=== PATIENT | male | born 1970 | race Caucasian/White ===

== ENCOUNTER 2017-02-26 10:08 | Emergency (ER) | payer BC ==
[~2017-02-26] VITALS: Ht 172.7 cm; Wt 84.8 kg
[~2017-02-26 10:08] MED LIST: NAPROXEN250 MG PO
[2017-02-26] MEDS ORDERED: CEFAZOLIN SOD 1 GM/NS 50ML 50 ML IV STA (11:16)
[2017-02-26] MEDS ORDERED: ONDANSETRON HCL INJ 2 MG/ML VIAL IV STA (11:42)
[2017-02-26] MEDS ORDERED: HYDROMORPHONE 1MG/1ML INJ IV STA (11:42)
--- NOTE | 2017-02-26 11:48 | Diagnostic Imaging Report ---
Left foot - 3 views HISTORY: Pain. COMPARISON: None available. FINDINGS: Bones: No acute displaced fracture. Bridging osteophyte is present along the left lateral aspect of the midfoot. No expansile lytic or sclerotic lesion. Joints: The joint spaces are well-maintained. No dislocation. Soft tissues: The soft tissues appear unremarkable. IMPRESSION: No acute radiographic abnormality. Signed by: Dr. Presley Templeton M.D. on 02/26/2017 11:44 AM
[2017-02-26] MEDS ORDERED: VANCOMYCIN 1GM/NS 250 ML 250 ML IV STA (11:50)
[2017-02-26 11:51] LABS: BASOPHILS # (AUTO) 0.1 (0.0-0.1); BASOPHILS % 0.9 % (0.0-1.0); EOSINOPHILS # (AUTO) 0.3 (0.0-0.4); EOSINOPHILS % 3.2 % (0.0-6.0); HEMATOCRIT 46.3 % (38.2-49.6); HEMOGLOBIN 15.5 g/dL (14.0-18.0); LYMPHOCYTES # (AUTO) 2.2 (1.0-3.2); LYMPHOCYTES % 27.4 % (18.0-39.1); MEAN CORPUSCULAR HEMOGLOBIN 29.6 pg (28-32); MEAN CORPUSCULAR HGB CONC 33.5 g/dL (31-35); MEAN CORPUSCULAR VOLUME 88.4 fL (81-99); NEUTROPHILS # (AUTO) 4.6 (2.1-6.9); NEUTROPHILS % 56.1 % (38.7-80.0); PLATELET COUNT 319 x10e3/uL (140-360); RED BLOOD COUNT 5.24 x10e6/uL (4.3-5.7); RED CELL DISTRIBUTION WIDTH 12.3 % (11.7-14.4)
[2017-02-26 12:08] LABS: ANION GAP 13.1 mmol/L (8-16); BLOOD UREA NITROGEN 18 mg/dL (7-26); BUN/CREATININE RATIO 20 (6-25); CALCIUM 9.6 mg/dL (8.4-10.2); CARBON DIOXIDE 26 mmol/L (22-29); CHLORIDE 105 mmol/L (98-107); CREATININE, SERUM 0.89 mg/dL (0.72-1.25); EST GLOMERULAR FILTRATION RATE > 60 ML/MIN (60-); GLUCOSE 109 mg/dL (74-118); POTASSIUM 4.1 mmol/L (3.5-5.1); SODIUM 140 mmol/L (136-145)
[2017-02-26 13:31] VITALS: BP 112/72
[2017-02-26] MEDS ORDERED: HYDROMORPHONE 1MG/1ML INJ IV ONE (14:00)
[2017-02-26] MEDS ORDERED: HYDROMORPHONE HCL 2 MG TAB PO ONE (14:00)
== END 2017-02-26 13:48 | disposition home or self-care (01) ==
LOC: ER 10:08
DX: M79.672 Pain in left foot (principal); L03.116 Cellulitis of left lower limb
CPT/HCPCS: 36415; 73630; 80048; 85025; 87040; 99284; J1170; J2405; J3370

== ENCOUNTER 2018-02-13 12:10 | Emergency (ER) | payer BC ==
[~2018-02-13] VITALS: Ht 172.7 cm; Wt 86.2 kg
--- OUTSIDE RECORDS SUMMARY | 2018-02-13 12:13 | XMS REPORT ---
Author Author [facility] Address Unknown Phone Unavailable Care Team Providers Care Painter Drum Name Role Phone [place] ORTIZ Unavailable Unavailable Problems This patient has no known problems. Allergies, Adverse Reactions, Alerts This patient has no known allergies or adverse reactions. Medications This patient has no known medications. Results Test Description Test Time Test Comments Text Results Atomic Results Result Comments FOOT LEFT COMPLETE [place] [address] Patient Name: MEGGAN GABRIEL MR #: [id number] : 1970 Age/Sex: 46/M Req #: [id number] Adm Physician: Ordered by: HIWOT ORITZ MD Report #: [id number] Location: ER Room/Bed: Procedure: [id number] DX/FOOT LEFT COMPLETE Exam Date: 02/26/17 Exam Time: 1120 REPORT STATUS: Signed Left foot - 3 views HISTORY: Pain. COMPARISON: None available. FINDINGS: Bones: No acute displaced fracture. Bridging osteophyte is present along the left lateral aspect of the midfoot. No expansile lytic or sclerotic lesion. Joints: The joint spaces are well-maintained. No dislocation. Soft tissues: The soft tissues appear unremarkable. IMPRESSION: No acute radiographic abnormality. Signed by: Dr. Justen Joyce M.D. on 02/26/2017 11:44 AM Dictated By: JUSTEN JOYCE MD [id number] Transcribed By: LAM on 02/26/17 1144 COPY TO: HIWOT ORTIZ MD
[2018-02-13] MEDS ORDERED: HYDRALAZINE HCL 25 MG TAB PO STA (12:31)
[2018-02-13] MEDS ORDERED: HYDROCODONE/APAP 10MG-325MG TAB PO STA (12:31)
[2018-02-13] MEDS ORDERED: METOPROLOL TART25 MG PO (12:36)
[2018-02-13] MEDS ORDERED: ATORVASTATIN CA10 MG PO (12:36)
[2018-02-13] MEDS ORDERED: CLINDAMYCIN PHOS 600 MG/ 4 ML VIAL IM ONE (12:45)
[2018-02-13 14:45] VITALS: BP 143/92
== END 2018-02-13 14:43 | disposition home or self-care (01) ==
LOC: ER 13:09
DX: L03.114 Cellulitis of left upper limb (principal); L02.211 Cutaneous abscess of abdominal wall; T22.212A Burn of second degree of left forearm, initial encounter; X08.8XXA Exposure to other specified smoke, fire and flames, initial encounter; I10 Essential (primary) hypertension; E78.5 Hyperlipidemia, unspecified; N40.0 Benign prostatic hyperplasia without lower urinary tract symptoms; F17.210 Nicotine dependence, cigarettes, uncomplicated; Z88.0 Allergy status to penicillin
CPT/HCPCS: 99283

== ENCOUNTER 2018-05-28 13:32 | Inpatient (IN) | payer BC ==
[~2018-05-28] VITALS: Ht 172.7 cm; Wt 117.0 kg
[~2018-05-28 13:32] MED LIST changes: +ATORVASTATIN CA10 MG PO; +METOPROLOL TART25 MG PO
[2018-05-28 14:08] LABS: BILIRUBIN,URINE NEGATIVE (NEGATIVE); CLARITY,URINE HAZY (CLEAR); COLOR,URINE YELLOW (YELLOW); KETONES,URINE NEGATIVE (NEGATIVE); LEUKOCYTE ESTERASE ,URINE NEGATIVE (NEGATIVE); NITRITE,URINE NEGATIVE (NEGATIVE); PROTEIN,URINE DIPSTICK 1+ (NEGATIVE); URINE UROBILINOGEN 0.2 mg/dL (0.2 - 1)
[2018-05-28 14:17] LABS: BACTERIA,URINE RARE /HPF; EPITHELIAL CELLS,URINE RARE /LPF; RBC,URINE 0-5 /HPF (0-5); WBC,URINE (MAN) 0-5 /HPF (0-5)
[2018-05-28] MEDS ORDERED: ALBUTEROL SULF 0.083% NEB SOLN 3 ML NEB NEB STA (14:32)
[2018-05-28] MEDS ORDERED: IPRATROPIUM BROMIDE 0.02% 2.5 ML NEB NEB ONE (14:45)
[2018-05-28 14:47] LABS: BASOPHILS # (AUTO) 0.1 (0.0-0.1); BASOPHILS % 0.7 % (0.0-1.0); EOSINOPHILS # (AUTO) 0.2 (0.0-0.4); EOSINOPHILS % 3.2 % (0.0-6.0); HEMATOCRIT 43.2 % (38.2-49.6); HEMOGLOBIN 14.5 g/dL (14.0-18.0); LYMPHOCYTES # (AUTO) 1.7 (1.0-3.2); MEAN CORPUSCULAR HEMOGLOBIN 30.1 pg (28-32); MEAN CORPUSCULAR HGB CONC 33.6 g/dL (31-35); MEAN CORPUSCULAR VOLUME 89.8 fL (81-99); MONOCYTES # (AUTO) 0.8 (0.2-0.8); MONOCYTES % 10.6 % (4.4-11.3); NEUTROPHILS # (AUTO) 4.3 (2.1-6.9); NEUTROPHILS % 60.9 % (38.7-80.0); PLATELET COUNT 293 x10e3/uL (140-360); RED BLOOD COUNT 4.81 x10e6/uL (4.3-5.7); RED CELL DISTRIBUTION WIDTH 12.7 % (11.7-14.4)
[2018-05-28] MEDS ORDERED: DIOVAN80 MG PO (14:51)
[2018-05-28 14:52] LABS: INR 0.85; PROTHROMBIN TIME 12.1 seconds (11.9-14.5)
[2018-05-28 14:59] LABS: ALANINE AMINOTRANSFERASE 72 IU/L (0-55); ALBUMIN/GLOBULIN RATIO 1.2 (0.8-2.0); ALKALINE PHOSPHATASE 65 IU/L (40-150); ANION GAP 13.7 mmol/L (8-16); BLOOD UREA NITROGEN 13 mg/dL (7-26); BUN/CREATININE RATIO 15 (6-25); CALCIUM 8.9 mg/dL (8.4-10.2); CARBON DIOXIDE 26 mmol/L (22-29); CHLORIDE 102 mmol/L (98-107); CREATINE KINASE 156 IU/L (30-200); CREATININE, SERUM 0.84 mg/dL (0.72-1.25); EST GLOMERULAR FILTRATION RATE > 60 ML/MIN (60-); GLUCOSE 155 mg/dL (74-118); MAGNESIUM 2.3 MG/DL (1.3-2.1); POTASSIUM 3.7 mmol/L (3.5-5.1); SODIUM 138 mmol/L (136-145)
[2018-05-28 15:19] LABS: B-TYPE NATRIURETIC PEPTIDE2 47.8 pg/mL (0-100)
--- NOTE | 2018-05-28 15:25 | Diagnostic Imaging Report ---
EXAMINATION: CHEST 2 VIEWS INDICATION: Shortness of breath, CHF ^sob COMPARISON: None FINDINGS: PA and lateral views TUBES and LINES: None. LUNGS: There is flattening of the diaphragms. There is no evidence of pneumonia or pulmonary edema. Central pulmonary vasculature is prominent. PLEURA: No pleural effusion or pneumothorax. HEART AND MEDIASTINUM: The heart is top normal in size. The mediastinum is normal. BONES AND SOFT TISSUES: No focal osseous lesions. Soft tissues are unremarkable. UPPER ABDOMEN: No free air under the diaphragm. Clips in the upper abdomen may be the result of cholecystectomy. IMPRESSION: Prominent central pulmonary vasculature and top normal size of the heart. Pulmonary venous hypertension is suspected. Pulmonary hyperinflation suggestive of COPD. Signed by: Dr. Roque Enriquez MD on 05/28/2018 3:22 PM
[2018-05-28] MEDS ORDERED: METHYLPREDNISOLONE SOD SUCC 125 MG/2ML VIAL IV STA (16:01)
[2018-05-28] MEDS ORDERED: ONDANSETRON HCL INJ 2MG/ML 2ML 2 MG/ML VIAL IV PRN (16:15)
[2018-05-28] MEDS: HYDROCODONE/APAP 7.5MG-325MG 1 EA TAB PO PRN (16:58)
[2018-05-28] MEDS: LIDOCAINE HCL 2% JELLY 5 ML TUBE TOP PRN (16:59)
[2018-05-28] MEDS ORDERED: METOPROLOL TARTRATE 25 MG TAB PO SCH (17:00)
[2018-05-28 18:00] VITALS: BP 154/97
[2018-05-28 18:26] VITALS: BP 154/97
[2018-05-28] MEDS ORDERED: INFLUENZA VIRUS VAC SPLIT INJ 0.5 ML SYR IM ONE (18:45)
[2018-05-28] MEDS ORDERED: PNEUMOCOCCAL VACCINE POLYVALENT 23 MCG/0.5 ML VIAL IM ONE (18:45)
[2018-05-28] MEDS ORDERED: ACETAMINOPHEN 325 MG TAB PO PRN (19:15)
[2018-05-28] MEDS ORDERED: ACETAMINOPHEN/CODEINE 300MG - 30MG TAB PO PRN (19:15)
[2018-05-28] MEDS ORDERED: HYDRALAZINE HCL 20 MG/ML VIAL IV PRN (19:15)
--- NOTE | 2018-05-28 19:18 | NUR ---
Pt received resting in bed. Alert and oriented x4 with saline lock #20 in left AC. Oriented to staff and surroundings, encouraged to press call marx if help needed. Flu and pneumonia vaccines given. Call marx within reach. Emotional support given. Fall precautions maintained. Will monitor
--- NOTE | 2018-05-28 19:30 | NUR ---
Patient received in a high -dunbar position in bed. Family at bedside. Patient is AAO x 4. Patient had no complaints of pain. No signs of respiratory distress. Patient instructed to call for assistance when needed. Fall precautions implemented. Call light within reach.
[2018-05-28 20:39] VITALS: BP 152/100
[2018-05-29] VITALS (8 sets, daily range): BP systolic 105–157; BP diastolic 62–73
[2018-05-29] MEDS: ALBUTEROL/IPRATROPIUM 3 ML NEB NEB SCH ×4 (00:05→20:00)
[2018-05-29] MEDS: HYDROCODONE/APAP 7.5MG-325MG 1 EA TAB PO PRN ×2 (00:46→17:02)
[2018-05-29] MEDS: LIDOCAINE HCL 2% JELLY 5 ML TUBE TOP PRN (01:30)
[2018-05-29 05:05] LABS: BASOPHILS % 0.2 % (0.0-1.0); HEMATOCRIT 42.5 % (38.2-49.6); HEMOGLOBIN 14.2 g/dL (14.0-18.0); LYMPHOCYTES # (AUTO) 0.6 (1.0-3.2); MEAN CORPUSCULAR HEMOGLOBIN 30.1 pg (28-32); MEAN CORPUSCULAR HGB CONC 33.4 g/dL (31-35); MEAN CORPUSCULAR VOLUME 90.2 fL (81-99); MONOCYTES # (AUTO) 0.2 (0.2-0.8); MONOCYTES % 2.3 % (4.4-11.3); NEUTROPHILS % 89.7 % (38.7-80.0); PLATELET COUNT 288 x10e3/uL (140-360); RED BLOOD COUNT 4.71 x10e6/uL (4.3-5.7); RED CELL DISTRIBUTION WIDTH 12.7 % (11.7-14.4)
[2018-05-29 05:12] LABS: MAGNESIUM 2.3 MG/DL (1.3-2.1)
[2018-05-29 05:22] LABS: ALANINE AMINOTRANSFERASE 61 IU/L (0-55); ALBUMIN 3.7 g/dL (3.5-5.0); ALBUMIN/GLOBULIN RATIO 1.1 (0.8-2.0); ALKALINE PHOSPHATASE 59 IU/L (40-150); ANION GAP 15.7 mmol/L (8-16); BLOOD UREA NITROGEN 19 mg/dL (7-26); BUN/CREATININE RATIO 19 (6-25); CALCIUM 8.8 mg/dL (8.4-10.2); CARBON DIOXIDE 23 mmol/L (22-29); CHLORIDE 102 mmol/L (98-107); CHOL/HDL RATIO 5.7 (3.9-4.7); CHOLESTEROL 232 MD/DL (0-199); EST GLOMERULAR FILTRATION RATE > 60 ML/MIN (60-); GLUCOSE 218 mg/dL (74-118); HDL CHOLESTEROL 41 MG/DL (40-60); LDL CHOLESTEROL 153 MG/DL (60-130); POTASSIUM 4.7 mmol/L (3.5-5.1); SODIUM 136 mmol/L (136-145); TRIGLYCERIDES 188 MG/DL (0-149)
[2018-05-29 05:40] LABS: B-TYPE NATRIURETIC PEPTIDE2 63.6 pg/mL (0-100)
[2018-05-29] MEDS: FAMOTIDINE 20 MG/2 ML VIAL IV SCH ×3 (05:50→16:11)
--- NOTE | 2018-05-29 07:00 | NUR ---
SHIFT REPORT RECEIVED FROM NIGHT RN WHILE ROUNDING AT BEDSIDE. PT DENIES NEEDS AT THIS TIME.
[2018-05-29 07:05] LABS: FREE T4 (FREE THYROXINE) 0.99 ng/dL (0.9-1.8); THYROID STIMULATING HORMONE 0.991 uIU/mL (0.350-4.940)
[2018-05-29] MEDS: METOPROLOL TARTRATE 25 MG TAB PO SCH (08:27)
[2018-05-29] MEDS ORDERED: VALSARTAN 80 MG TAB PO SCH (09:00)
[2018-05-29] MEDS ORDERED: NICOTINE 21 MG/EA PATCH TOP SCH (09:00)
[2018-05-29] MEDS ORDERED: DEXTROSE 50% SYRINGE 50 ML IV PRN (09:00)
[2018-05-29] MEDS ORDERED: NICOTINE 21 MG/EA PATCH TOP PRN (09:15)
[2018-05-29] MEDS ORDERED: FUROSEMIDE INJ 10 MG/ML 2 ML VIAL IV NR (09:30)
[2018-05-29] MEDS: METHYLPREDNISOLONE SOD SUCC 125 MG/2ML VIAL IV SCH ×2 (09:37→20:55)
[2018-05-29] MEDS: CEFTRIAXONE SOD 1 GM/NS 50 ML 50 ML IV SCH (09:38)
[2018-05-29] MEDS: AMLODIPINE BESYLATE 10 MG TAB PO SCH (09:38)
[2018-05-29] MEDS: AZITHROMYCIN 500MG/NS 250 ML 250 ML IV SCH (09:40)
[2018-05-29 09:44] LABS: CREATINE KINASE 115 IU/L (30-200)
[2018-05-29] MEDS ORDERED: SODIUM CHLORIDE 0.9% 250ML 250 ML ONE (10:15)
[2018-05-29] MEDS: GUAIFENESIN 600MG/DEXTROMETHORPHAN 30MG TABSR PO SCH ×2 (10:53→20:55)
[2018-05-29] MEDS: INSULIN LISPRO 100 UNIT/1 ML 3ML VIAL SQ SCH ×3 (11:30→21:00)
--- NOTE | 2018-05-29 15:00 | NUR ---
PRINTED EDUCATION MATERIAL COVERING DIABETIC EDUCATION WELL CHOLESTEROL PROVIDED TO THE PT.
[2018-05-29 16:47] LABS: ABG PH 7.33 (7.31-7.41)
[2018-05-29 16:48] LABS: ABG HCO3 22 mmol/L (23-28); ABG PCO2 42 mmHg (41-51); ABG PO2 67 mmHg (80-105)
--- NOTE | 2018-05-29 17:16 | Diagnostic Imaging Report ---
Exam: Chest with contrast PE protocol TECHNIQUE: CT scan of the chest WITH intravenous contrast, using PE protocol. The chest was scanned utilizing a multidetector helical scanner from the lung apex through the level of the adrenal glands after the IV administration of 100 cc of Omnipaque 370. Thin section reconstructions were obtained with special concentration on the pulmonary arteries. Coronal and sagittal reformations were obtained. COMPARISON: Chest radiograph dated 05/28/2018 INDICATION: Dyspnea shortness of breath, history of smoking and hypertension 47-year-old male. DISCUSSION: Vessels: No pulmonary artery filling defect through the segmental pulmonary arteries. The ascending aorta and main pulmonary artery are of normal caliber. Lungs: The lungs are well inflated. Scarring/atelectasis in the left lung base. No filling defects are identified within the pulmonary arteries to the segmental level. Airways: The major airways are clear. Pleura: Small 1.9 cm fluid density collection along the right major fissure medially likely represents trapped pleural fluid. There is no evidence of significant pleural effusion or pneumothorax. Heart and mediastinum: The heart and the mediastinum are normal. No mediastinal or hilar lymphadenopathy. Scattered coronary artery calcifications. Abdomen: Diffusely decreased density of the hepatic parenchyma suggestive of hepatic steatosis. Bones and soft tissues: No acute bony abnormalities. IMPRESSION: #1. No pulmonary embolism. No acute thoracic abnormality. #2. Probable hepatic steatosis. Signed by: Phoenix Moya MD on 05/29/2018 5:13 PM
[2018-05-29] MEDS: ATORVASTATIN 20 MG TAB PO SCH (20:55)
[2018-05-29] MEDS ORDERED: FAMOTIDINE 20 MG/2 ML VIAL IV ONE (21:00)
--- NOTE | 2018-05-29 21:22 | Consultation ---
DATE OF CONSULTATION: Pulmonary Critical Care Consultation CHIEF COMPLAINT: Wheezing and cough. HISTORY OF PRESENT ILLNESS: The patient is a 47-year-old man. He has a vague history of COPD as well as a history of sleep apnea. He previously saw a house servant at the [facility]. He was tried on several different types of CPAP, but had difficulty tolerating it. The patient also reports some chronic dyspnea on exertion. He has had more dyspnea over the past several weeks. He has significant wheezing and coughing. He denies any chest pain or fevers. He does complain of an ulceration on the lateral aspect of his tongue that has been there for at least three weeks. PAST SURGICAL HISTORY: 1. Status post appendectomy. 2. Status post cholecystectomy. PAST MEDICAL HISTORY: 1. Obstructive sleep apnea. 2. COPD. 3. Hypertension. SOCIAL HISTORY: The patient is a former smoker. He is not an active drinker. ALLERGIES: THE PATIENT IS ALLERGIC TO PENICILLIN. FAMILY HISTORY: There is a history of cancer in the family. REVIEW OF SYSTEMS: The patient is afebrile. He has no headache. He is not having any neck pain. He does complain of an ulceration on the tongue. He has no chest pain. He is not having any abdominal pain. There is no nausea or vomiting. He does have wheezing. He does have some phlegm production. He has some leg swelling. PHYSICAL EXAMINATION: VITAL SIGNS: The patient is afebrile. The blood pressure is 157/73, and O2 saturation is 96% on 2 L. Pulse is 90 and the respiratory rate is 19. HEENT: Shows no facial swelling or erythema. The oropharynx is significant for a small ulceration on the left lateral tongue. LYMPHATIC: Shows no submandibular, cervical, or supraclavicular adenopathy. CARDIAC: Reveals a regular rate and rhythm with normal S1, S2. There are no murmurs or rubs. LUNGS: Auscultation of lungs reveals wheezes in both lung jason. ABDOMEN: Soft, nontender. There is no rebound or guarding. EXTREMITIES: Show no leg edema or calf tenderness. There is no cyanosis or clubbing. SKIN: Shows no rashes. NEUROLOGIC: Shows no focal abnormalities. LABORATORY DATA: The white blood cell count is 8.9 and the hemoglobin is 14.2. The platelet count is 288. The BUN to creatinine ratio is normal. The other electrolytes are within normal limits. RADIOGRAPHIC DATA: Chest x-ray shows normal size heart. There may be some hyperinflation suggestive of COPD. Venous duplex shows no DVT. Echocardiogram shows a left atrial enlargement as well as a normal left ventricular function with an EF of 50% to 55%. There was no measurable tricuspid jet. IMPRESSION: 1. Chronic obstructive pulmonary disease with acute exacerbation. 2. Obesity-hypoventilation syndrome. 3. Severe obstructive sleep apnea. PLAN: 1. The patient should have an ABG to determine his resting CO2. 2. Continue Solu-Medrol along with antibiotics and bronchodilators. 3. The patient has tried a nasal mask and a full face mask for his obstructive sleep apnea. Other options would include nasal pillows or possibly a dental prosthesis. Surgical treatments such as uvulopalatal pharyngoplasty or hyoid / genioglossus advancement would be the last option. 4. Medicine evaluation of chronic oral ulcer. This may require a biopsy. Shane Thomas MD Lucretia/OTTO /[id number] [place]
--- NOTE | 2018-05-29 21:30 | NUR ---
patient complaining of chest pain, vs taken hr 97 bp 130/65 RR 22 Spo2 95% on 2 L NC. patient states it is tightness. Called Bj WRAPPING CLERK, one time order of pepcid ordered.
--- NOTE | 2018-05-29 21:50 | NUR ---
Patient states minimal relief with pepcid. Bj called, order for ativan x 1, cardiac markers x 1, ekg.
[2018-05-29] MEDS ORDERED: LORAZEPAM 0.5 MG TAB PO ONE (22:00)
--- NOTE | 2018-05-29 22:00 | NUR ---
patient refused ekg
[2018-05-29 22:18] LABS: CREATINE KINASE 118 IU/L (30-200)
[2018-05-29] MEDS ORDERED: SODIUM CHLORIDE 0.9% 50ML 50 ML ONE (22:25)
[2018-05-29] MEDS ORDERED: IOPAMIDOL 370 MG/ML 200 ML INFUS..BTL INJ ONE (22:25)
[2018-05-30] VITALS (7 sets, daily range): BP systolic 117–142; BP diastolic 60–76
[2018-05-30] MEDS: ALBUTEROL/IPRATROPIUM 3 ML NEB NEB SCH ×2 (00:30→07:25)
[2018-05-30] MEDS: FAMOTIDINE 20 MG/2 ML VIAL IV SCH ×2 (04:09→15:51)
[2018-05-30 04:52] LABS: BASOPHILS % 0.1 % (0.0-1.0); HEMATOCRIT 40.5 % (38.2-49.6); HEMOGLOBIN 13.3 g/dL (14.0-18.0); LYMPHOCYTES # (AUTO) 0.6 (1.0-3.2); LYMPHOCYTES % 4.8 % (18.0-39.1); MEAN CORPUSCULAR HEMOGLOBIN 29.9 pg (28-32); MEAN CORPUSCULAR HGB CONC 32.8 g/dL (31-35); MONOCYTES # (AUTO) 0.6 (0.2-0.8); MONOCYTES % 4.4 % (4.4-11.3); NEUTROPHILS # (AUTO) 11.3 (2.1-6.9); NEUTROPHILS % 89.9 % (38.7-80.0); PLATELET COUNT 297 x10e3/uL (140-360); RED BLOOD COUNT 4.45 x10e6/uL (4.3-5.7); RED CELL DISTRIBUTION WIDTH 13.1 % (11.7-14.4)
[2018-05-30 05:14] LABS: ALBUMIN 3.7 g/dL (3.5-5.0); ANION GAP 14.3 mmol/L (8-16); BILIRUBIN,DIRECT 0.1 mg/dL (0.0-0.5); BLOOD UREA NITROGEN 23 mg/dL (7-26); BUN/CREATININE RATIO 24 (6-25); CALCIUM 9.4 mg/dL (8.4-10.2); CARBON DIOXIDE 24 mmol/L (22-29); CHLORIDE 103 mmol/L (98-107); CREATININE, SERUM 0.95 mg/dL (0.72-1.25); EST GLOMERULAR FILTRATION RATE > 60 ML/MIN (60-); GLUCOSE 246 mg/dL (74-118); MAGNESIUM 2.6 MG/DL (1.3-2.1); SODIUM 136 mmol/L (136-145)
[2018-05-30 05:16] LABS: POTASSIUM 5.3 mmol/L (3.5-5.1)
--- NOTE | 2018-05-30 07:00 | NUR ---
SHIFT REPORT RECEIVED FROM NIGHT RN WHILE ROUNDING AT BEDSIDE. PT DENIES NEEDS AT THIS TIME.
[2018-05-30] MEDS: INSULIN LISPRO 100 UNIT/1 ML 3ML VIAL SQ SCH ×4 (07:51→21:00)
[2018-05-30] MEDS: GUAIFENESIN 600MG/DEXTROMETHORPHAN 30MG TABSR PO SCH ×2 (08:08→21:34)
[2018-05-30] MEDS: METHYLPREDNISOLONE SOD SUCC 125 MG/2ML VIAL IV SCH (08:08)
[2018-05-30] MEDS: METOPROLOL TARTRATE 25 MG TAB PO SCH (08:08)
[2018-05-30] MEDS: AMLODIPINE BESYLATE 10 MG TAB PO SCH (08:09)
[2018-05-30] MEDS ORDERED: LORAZEPAM INJ 2 MG/ML VIAL IV PRN (08:15)
[2018-05-30] MEDS: AZITHROMYCIN 500MG/NS 250 ML 250 ML IV SCH (08:23)
[2018-05-30] MEDS ORDERED: FUROSEMIDE INJ 10 MG/ML 4 ML VIAL IV NR (08:45)
[2018-05-30] MEDS: CEFTRIAXONE SOD 1 GM/NS 50 ML 50 ML IV SCH (09:56)
[2018-05-30] MEDS ORDERED: ALBUTEROL SULF 0.083% NEB SOLN 3 ML NEB NEB PRN (12:30)
--- NOTE | 2018-05-30 15:52 | Progress Note ---
DATE: Pulmonary Critical Care Progress Note SUBJECTIVE: The patient feels better today. He has less congestion and less cough. He still complains of an ulceration on his tongue. PHYSICAL EXAMINATION: VITAL SIGNS: Blood pressure is 129/73, saturation is 94% on 2 L. The pulse is 88. HEENT: Shows no facial swelling or erythema. There is an ulcer on the lateral aspect of the tongue. LYMPHATIC: Shows no submandibular, cervical, or supraclavicular adenopathy. CARDIAC: Reveals regular rate and rhythm with a normal S1 and S2. There are no murmurs or rubs. LUNGS: Auscultation of lungs reveals a few rhonchorous breath sounds bilaterally. There is no wheezing. ABDOMEN: Soft and nontender. There is no rebound or guarding. EXTREMITIES: Show no leg edema or calf tenderness. RADIOGRAPHIC DATA: CT scan shows no active disease. IMPRESSION: 1. Chronic obstructive pulmonary disease with acute exacerbation. 2. Severe obstructive sleep apnea. PLAN: 1. Taper steroids. 2. Continue antibiotics. 3. The patient should begin Spiriva on a daily basis as an outpatient along with nebulizer as needed for rescue. 4. The patient will need an oral medicine or ENT evaluation for the oral ulcer. This ulcer will most probably require biopsy. 5. The patient will need outpatient evaluation for his obstructive sleep apnea. He will most probably require a nasal mask or nasal pillow mask to treat his obstructive sleep apnea. Other options would include a dental prosthesis. 6. The patient should begin weight loss and exercise program. Weight loss may help his obstructive sleep apnea. MD PALMIRA Garland/OTTO /[id number]
[2018-05-30] MEDS: METHYLPREDNISOLONE SOD SUCC 40 MG/ML VIAL 1ML IV SCH (21:34)
[2018-05-30] MEDS: ATORVASTATIN 20 MG TAB PO SCH (21:34)
[2018-05-31] VITALS (7 sets, daily range): BP systolic 111–139; BP diastolic 58–85
--- NOTE | 2018-05-31 02:40 | Consultation ---
DATE OF CONSULTATION: 05/30/2018 Hospital Consultation. HISTORY OF PRESENT ILLNESS: I was kindly asked to see this [id number]-man, who presents with a 3-week history of lesion on his left lateral tongue. Prior to this episode he has had multiple ulcers in his mouth, which have resolved spontaneously. He presented to the hospital with difficulty breathing and dry cough. PAST MEDICAL HISTORY: Pertinent for obstructive sleep apnea, COPD, hypertension, and tobacco use. PHYSICAL EXAMINATION: The tympanic membranes and external auditory canal are normal. Nasal examination shows a mild S-shaped nasal septal deviation with normal appearing nasal mucosa. Oral cavity examination shows an enlarged tongue. He had elongated uvula with redundant folds of hypopharyngeal mucosa. There is 2 mm x 4 mm lesion on the left lateral tongue. Margins are not hit and findings are consistent with viral aphthous ulcer. There is no palpable cervical adenopathy. ASSESSMENT: 1. Aphthous stomatitis. 2. Obstructive sleep apnea. 3. History of tobacco use. PLAN: 1. Kenalog in [place] to the left lateral tongue lesion t.i.d. 2. Consideration of biopsy as the tongue lesion based on response to medical therapy. Thank you very much. MD GENE Goodrich/MODL /[id number]
[2018-05-31] MEDS: FAMOTIDINE 20 MG/2 ML VIAL IV SCH ×2 (04:15→15:58)
[2018-05-31] MEDS: TRIAMCINOLONE 0.1% DENTAL PASTE 0.18 OZ TUBE DT SCH ×3 (04:46→17:42)
[2018-05-31 05:15] LABS: BASOPHILS % 0.1 % (0.0-1.0); HEMATOCRIT 42.5 % (38.2-49.6); HEMOGLOBIN 13.8 g/dL (14.0-18.0); LYMPHOCYTES # (AUTO) 0.9 (1.0-3.2); LYMPHOCYTES % 7.5 % (18.0-39.1); MEAN CORPUSCULAR HEMOGLOBIN 29.9 pg (28-32); MEAN CORPUSCULAR HGB CONC 32.5 g/dL (31-35); MONOCYTES # (AUTO) 0.6 (0.2-0.8); MONOCYTES % 5.4 % (4.4-11.3); NEUTROPHILS % 86.6 % (38.7-80.0); PLATELET COUNT 297 x10e3/uL (140-360); RED BLOOD COUNT 4.62 x10e6/uL (4.3-5.7)
[2018-05-31 05:50] LABS: ANION GAP 13.7 mmol/L (8-16); BLOOD UREA NITROGEN 26 mg/dL (7-26); BUN/CREATININE RATIO 30 (6-25); CALCIUM 9.1 mg/dL (8.4-10.2); CARBON DIOXIDE 27 mmol/L (22-29); CHLORIDE 98 mmol/L (98-107); CREATININE, SERUM 0.86 mg/dL (0.72-1.25); EST GLOMERULAR FILTRATION RATE > 60 ML/MIN (60-); GLUCOSE 162 mg/dL (74-118); MAGNESIUM 2.5 MG/DL (1.3-2.1); POTASSIUM 4.7 mmol/L (3.5-5.1); SODIUM 134 mmol/L (136-145)
--- NOTE | 2018-05-31 07:00 | NUR ---
Received patient mid fowlers position, side rails upx2, call light within reach. AAOX3 to person, place, time. Respirations even and unlabored. Denies pain. Instructed patient to use call light for assistance. Will continue to monitor.
[2018-05-31] MEDS: TIOTROPIUM 18 MCG INH POWDER INH SCH (07:16)
[2018-05-31] MEDS ORDERED: SODIUM CHLORIDE 0.9% 250ML 250 ML ONE (07:21)
[2018-05-31] MEDS: METHYLPREDNISOLONE SOD SUCC 40 MG/ML VIAL 1ML IV SCH ×2 (08:21→21:50)
[2018-05-31] MEDS: GUAIFENESIN 600MG/DEXTROMETHORPHAN 30MG TABSR PO SCH ×2 (08:21→21:50)
[2018-05-31] MEDS: METOPROLOL TARTRATE 25 MG TAB PO SCH (08:21)
[2018-05-31] MEDS: INSULIN LISPRO 100 UNIT/1 ML 3ML VIAL SQ SCH ×4 (08:22→21:00)
[2018-05-31] MEDS: CEFTRIAXONE SOD 1 GM/NS 50 ML 50 ML IV SCH (08:22)
[2018-05-31] MEDS: AMLODIPINE BESYLATE 10 MG TAB PO SCH (08:22)
[2018-05-31] MEDS: AZITHROMYCIN 500MG/NS 250 ML 250 ML IV SCH (09:34)
[2018-05-31] MEDS ORDERED: FUROSEMIDE INJ 10 MG/ML 4 ML VIAL IV ONE (10:00)
[2018-05-31] MEDS: ALBUTEROL/IPRATROPIUM 3 ML NEB NEB SCH ×4 (10:56→23:20)
--- NOTE | 2018-05-31 13:26 | NUR ---
CASE MANAGEMENT INITIAL ASSESSMENT Market Research Intern to bedside to discuss plan of care with patient/family. CM/SW role and care transitions discussed. Anticipated discharge plan discussed along with duration of care. CM/SW discussed patients right to make decisions in care. CM work hours given. Patient lives: PATIENT LIVES IN [place], [place] WITH SON IN SINGLE STORY HOME Admit/Transfer: ED Hospital/ER visits since last admit:NONE POA/Emergency contact: SONJoanna GABRIEL [phone] Current/Previous Home Health: NONE PCP/Follow-up Care: DR. WOODY JOYNER Current/Previous DME: NONE Medications (referring to index hospitalization or the first time you were in the hospital) a. Were changes made in your medications when you were in the hospital on [date of index hospitalization]? N/A Note: If no or not sure, please skip to question d b. Did you understand the changes? N/A c. Were you able to obtain your new medications right away? N/A d. Were you able to take your medications like the doctor wanted you to? N/A e. Did the hospital give you an accurate, easy to understand list of medications when you left? N/A Scale of 1-10 how comfortable does patient feel with disease management in outpatient setting: Other Services: NO HOME O2 Employment Status: EMPLOYED- [employer] Areas of Concerns: OXYGENATION Referral Needs: POSSIBLE HOME O2 Education Needs: FLUID RESTRICTIONS IMM/MORA given and signed (if applicable): IMM Goal for discharge: DISCHARGE HOME WITH HOME O2 CM left business card at the bedside with contact information. Name and number was also written on the patients whiteboard. Patient verbalized understanding of discussion. CM will follow-up with ongoing discharge and transition of care needs.
--- NOTE | 2018-05-31 14:32 | NUR ---
SANTINO SPOKE TO DR. GONZALEZ REGARDING SPLIT NIGHT SLEEP STUDY OUTPATIENT. INFORMED THAT CM DEPARTMENT DOES NOT SET UP OUTPATIENT SLEEP STUDY. DR. GONZALEZ STATES HE WILL HAVE HIS OFFICE SET IT UP. SANTINO OFFERED TO SEND INFORMATION TO HIS OFFICE; STATES HE WILL TAKE CARE OF IT. WITH NO FURTHER ORDERS OR QUESTIONS FOR SANTINO.
--- NOTE | 2018-05-31 15:24 | Progress Note ---
DATE: 05/31/2018 Pulmonary Critical Care Progress Note SUBJECTIVE: The patient feels better. He has less congestion and less cough. He is not complaining of any wheezing. He saw ENT in consultation. They recommended Kenalog to the aphthous ulcer. If the aphthous ulcer does not improve with Kenalog, then a biopsy may be required. PHYSICAL EXAMINATION: VITAL SIGNS: The patient is afebrile. The blood pressure is 111/58 and the saturation is 96%. The pulse is 67. The respiratory rate is 18. HEENT: Shows no facial swelling or erythema. The nasal mucosa is normal. The oropharynx is normal. LYMPHATIC: Shows no submandibular, cervical, or supraclavicular adenopathy. CARDIAC: Reveals a regular rate and rhythm with a normal S1 and S2. There are no murmurs or rubs heard. LUNGS: Auscultation of the lungs reveals clear breath sounds bilaterally. There is no wheezing. ABDOMEN: Soft and nontender. There is no rebound or guarding. EXTREMITIES: Show no leg edema or calf tenderness. There is no cyanosis or clubbing. IMPRESSION: 1. Chronic obstructive pulmonary disease with acute exacerbation. 2. Severe obstructive sleep apnea. PLAN: 1. Discharge home tomorrow. 2. Prednisone taper and oral antibiotics. 3. Spiriva daily with the rescue inhaler as needed. 4. Smoking cessation. 5. Outpatient sleep study with a split night protocol. Shane Thomas MD [facility]/MKL /[id number]
--- NOTE | 2018-05-31 18:31 | NUR ---
Resting in bed. No s/s of acute distress noted. Report to be given to oncoming nurse.
--- NOTE | 2018-05-31 19:28 | NUR ---
Patient received sitting up in bed. AAO x 4. Patient had no complaints of pain. No signs of respiratory distress. Patient instructed to call for assistance when needed. Call light within reach.
[2018-05-31] MEDS: ATORVASTATIN 20 MG TAB PO SCH (21:48)
[2018-06-01] VITALS: BP 148/88
[2018-06-01 03:02] VITALS: BP 148/88
[2018-06-01] MEDS: ALBUTEROL/IPRATROPIUM 3 ML NEB NEB SCH ×3 (03:48→11:00)
[2018-06-01 04:00] VITALS: BP 155/79
[2018-06-01] MEDS: FAMOTIDINE 20 MG/2 ML VIAL IV SCH (04:15)
[2018-06-01 05:04] LABS: BASOPHILS % 0.1 % (0.0-1.0); HEMATOCRIT 43.1 % (38.2-49.6); HEMOGLOBIN 14.2 g/dL (14.0-18.0); LYMPHOCYTES # (AUTO) 0.8 (1.0-3.2); LYMPHOCYTES % 9.3 % (18.0-39.1); MEAN CORPUSCULAR HEMOGLOBIN 29.6 pg (28-32); MEAN CORPUSCULAR HGB CONC 32.9 g/dL (31-35); MEAN CORPUSCULAR VOLUME 89.8 fL (81-99); MONOCYTES # (AUTO) 0.4 (0.2-0.8); MONOCYTES % 4.2 % (4.4-11.3); NEUTROPHILS # (AUTO) 7.1 (2.1-6.9); NEUTROPHILS % 85.7 % (38.7-80.0); PLATELET COUNT 282 x10e3/uL (140-360); RED CELL DISTRIBUTION WIDTH 12.6 % (11.7-14.4)
[2018-06-01 05:25] LABS: ANION GAP 17.2 mmol/L (8-16); BLOOD UREA NITROGEN 23 mg/dL (7-26); BUN/CREATININE RATIO 26 (6-25); CALCIUM 9.1 mg/dL (8.4-10.2); CARBON DIOXIDE 24 mmol/L (22-29); CHLORIDE 96 mmol/L (98-107); CREATININE, SERUM 0.89 mg/dL (0.72-1.25); EST GLOMERULAR FILTRATION RATE > 60 ML/MIN (60-); GLUCOSE 202 mg/dL (74-118); MAGNESIUM 2.4 MG/DL (1.3-2.1); POTASSIUM 4.2 mmol/L (3.5-5.1); SODIUM 133 mmol/L (136-145)
[2018-06-01] MEDS: TRIAMCINOLONE 0.1% DENTAL PASTE 0.18 OZ TUBE DT SCH ×2 (06:00→12:08)
[2018-06-01] MEDS: INSULIN LISPRO 100 UNIT/1 ML 3ML VIAL SQ SCH ×2 (07:30→12:09)
[2018-06-01] MEDS: TIOTROPIUM 18 MCG INH POWDER INH SCH (07:37)
[2018-06-01] MEDS: CEFTRIAXONE SOD 1 GM/NS 50 ML 50 ML IV SCH (08:00)
[2018-06-01 08:15] VITALS: BP 142/84
[2018-06-01] MEDS: METHYLPREDNISOLONE SOD SUCC 40 MG/ML VIAL 1ML IV SCH (08:19)
[2018-06-01] MEDS: METOPROLOL TARTRATE 25 MG TAB PO SCH (08:19)
[2018-06-01] MEDS: AZITHROMYCIN 500MG/NS 250 ML 250 ML IV SCH (08:20)
[2018-06-01] MEDS: GUAIFENESIN 600MG/DEXTROMETHORPHAN 30MG TABSR PO SCH (08:20)
[2018-06-01] MEDS: AMLODIPINE BESYLATE 10 MG TAB PO SCH (08:20)
[2018-06-01 08:25] VITALS: BP 142/84
[2018-06-01] MEDS ORDERED: METFORMIN HCL500 MG PO (10:39)
[2018-06-01] MEDS ORDERED: NORVASC10 MG PO (10:39)
[2018-06-01] MEDS ORDERED: LIPITOR20 MG PO (10:39)
[2018-06-01] MEDS ORDERED: MUCINEX DM ER1 EACH PO (10:39)
[2018-06-01] MEDS ORDERED: PREDNISONE20 MG PO (10:42)
[2018-06-01] MEDS ORDERED: SPIRIVA RESPIMAT IH (10:42)
[2018-06-01] MEDS ORDERED: AZITHROMYCIN250 MG PO (10:42)
[2018-06-01] MEDS ORDERED: PROAIR HFA INH8.5 GM INH (10:42)
[2018-06-01] MEDS ORDERED: TRIAMCINOLONE AC5 GM DT (10:44)
[2018-06-01] MEDS ORDERED: AZITHROMYCIN 250 MG TAB PO NR (11:00)
[2018-06-01] MEDS ORDERED: AZITHROMYCIN 250 MG TAB PO STA (11:54)
[2018-06-01 12:00] VITALS: BP 137/86
--- NOTE | 2018-06-01 12:00 | NUR ---
Kisha Wei Tar Pot Worker aware of order for outpatient sleep study. Per Kisha Wei "enterprise applications manager does not schedule outpatient sleep study. is aware"
--- NOTE | 2018-06-01 12:40 | NUR ---
Left AC IV discontinued. No signs of infiltration noted. 2x2 gauze and tape placed. Taken via wheelchair, by PCT, to personal car. AAOX4 to time, person, place, situation. Respirations even and unlabored. Discharge instructions, rx, and all personal belongings taken with patient.
--- NOTE | 2018-06-01 19:38 | Discharge Summary ---
ADMISSION DIAGNOSES: Acute exacerbation of chronic obstructive pulmonary disease, hypertension, hyperlipidemia, obesity, type 2 diabetes, tongue ulcer, tobacco use, bilateral lower extremity edema, and obstructive sleep apnea. DISCHARGE DIAGNOSES: Acute exacerbation of chronic obstructive pulmonary disease, hypertension, hyperlipidemia, obesity, type 2 diabetes, tongue ulcer, tobacco use, bilateral lower extremity edema, obstructive sleep apnea, rule out deep vein thrombosis, aphthous stomatitis, and aphthous ulcer. HISTORY: The patient has a history of hypertension, obstructive sleep apnea, tobacco use, and COPD. SURGICAL HISTORY: Cholecystectomy and appendectomy. FAMILY HISTORY: The patient's mom had throat cancer. SOCIAL HISTORY: The patient admits to smoking 1-2 packs a day of cigarettes for about 37 years. HOSPITAL COURSE: A 47-year-old male complains of orthopnea and dry cough that has worsened over the last few months. Symptoms are worse with lying flat and bending over. Symptoms improved with sitting up. He denies fever or sputum. He also complains of a hole in his tongue that began about 3 weeks ago. The lesion is tender to touch. He also complains of intermittent bilateral lower extremity edema. He says he has been told he has COPD and obstructive sleep apnea, but is unable to tolerate the CPAP. On admission, the patient had a chest x-ray that showed prominent central pulmonary vasculature and top-normal size of heart. Pulmonary venous hypertension is suspected. Pulmonary hyperinflation is suggestive of COPD. CT of the chest showed no PE, no acute thoracic abnormality. Blood cultures were negative. A1c was 7.1. Bilateral lower extremity venous Doppler was negative. Echo showed an EF of 50%-55%. Pulmonary was consulted. The patient was started on Zithromax, Rocephin, Solu-Medrol, aggressive neb treatments, and oxygen p.r.n. He was also started on sliding scale insulin, which was changed to metformin at the time of discharge. ENT was consulted for the tongue ulcer, who ordered Kenalog t.i.d., and said a biopsy may be needed based on the response to the medical therapy. He considered the ulcer to be a viral aphthous ulcer. After a couple days of IV antibiotics, the patient is feeling much better. He will discharge home with new prescriptions for Lipitor, metformin, prednisone taper dose, Spiriva, Zithromax, Norvasc, albuterol HFA, and Kenalog. He will follow up with primary care in 1-2 weeks and Pulmonology in 1-2 weeks. He will need an outpatient sleep study with a split night protocol per Pulmonology request. The patient will discharge home. Vital signs stable, patient afebrile. He does not qualify for oxygen at this time. The patient understands discharge instructions and agrees to plan. Dictated by Daisha Barth NP Wallace Liu MD ANJEL/MODL /[id number]
== END 2018-06-01 12:40 | disposition home or self-care (01) | DRG 191 ==
LOC: ER 13:32 → ERHOLD 16:07 → MED/SURG2 18:01 → OBSVTOIN 05-30 08:23
PROVIDERS: ADMIT Internal Medicine; ATTEND Internal Medicine
DX: J44.1 Chronic obstructive pulmonary disease with (acute) exacerbation (principal); E66.2 Morbid (severe) obesity with alveolar hypoventilation; E78.5 Hyperlipidemia, unspecified; I10 Essential (primary) hypertension; E11.9 Type 2 diabetes mellitus without complications; K14.0 Glossitis; G47.33 Obstructive sleep apnea (adult) (pediatric); K12.0 Recurrent oral aphthae; F17.210 Nicotine dependence, cigarettes, uncomplicated; I27.20 Pulmonary hypertension, unspecified; Z88.0 Allergy status to penicillin; Z68.39 Body mass index [BMI] 39.0-39.9, adult; E83.41 Hypermagnesemia
CPT/HCPCS: 36415; 36600; 71046; 71260; 80048; 80053; 80061; 80076; 81001; 82103; 82550; 82553; 82805; 82948; 83036; 83605; 83735; 83880; 84439; 84443; 84484; 85025; 85610; 85730; 87040; 90732; 93005; 93306; 93970; 94640; 96372; 99284; G0378; J0456; J0696; J1940; J2001; J2920; J2930; J7050; Q9967

== ENCOUNTER 2019-01-29 02:25 | Emergency (ER) | payer BC ==
[~2019-01-29] VITALS: Ht 172.7 cm; Wt 117.0 kg
[~2019-01-29 02:25] MED LIST changes: +AZITHROMYCIN250 MG PO; +DIOVAN80 MG PO; +LIPITOR20 MG PO; +METFORMIN HCL500 MG PO; +MUCINEX DM ER1 EACH PO; +NORVASC10 MG PO; +PREDNISONE20 MG PO; +PROAIR HFA INH8.5 GM INH; +SPIRIVA RESPIMAT IH; +TRIAMCINOLONE AC5 GM DT
--- NOTE | 2019-01-29 03:41 | Diagnostic Imaging Report ---
EXAMINATION: CHEST 2 VIEWS INDICATION: ^sob, cough ^[id number] ^0308 ^Y COMPARISON: Chest x-ray and CT chest 05/29/2018 FINDINGS: PA and lateral views TUBES and LINES: None. LUNGS: Mild stable hyperinflation. Diffuse pulmonary vascular congestion. No confluent infiltrates PLEURA: No pleural effusion or pneumothorax. HEART AND MEDIASTINUM: The heart is top normal in size to mildly enlarged. BONES AND SOFT TISSUES: No focal osseous lesions. Soft tissues are unremarkable. UPPER ABDOMEN: No free air under the diaphragm. IMPRESSION: Pulmonary vascular congestion. Chronic pulmonary hyperinflation suggestive of small airways disease. Signed by: Dr. Roque Enriquez MD on 01/29/2019 3:37 AM
== END 2019-01-29 04:10 | disposition home or self-care (01) ==
LOC: ER 02:25
DX: R05 Cough (principal); J20.9 Acute bronchitis, unspecified; I10 Essential (primary) hypertension; E78.5 Hyperlipidemia, unspecified; J44.9 Chronic obstructive pulmonary disease, unspecified; I50.9 Heart failure, unspecified
CPT/HCPCS: 71046; 87400; 99283

== ENCOUNTER 2019-04-28 00:54 | Inpatient (IN) | payer BC ==
[2019-04-28] VITALS (14 sets, daily range): BP systolic 120–139; BP diastolic 61–88
[~2019-04-28] VITALS: Ht 172.7 cm; Wt 112.0 kg
[2019-04-28 02:20] LABS: ALANINE AMINOTRANSFERASE 32 IU/L (0-55); ALBUMIN 3.9 g/dL (3.5-5.0); ALBUMIN/GLOBULIN RATIO 1.3 (0.8-2.0); ALKALINE PHOSPHATASE 54 IU/L (40-150); BLOOD UREA NITROGEN 13 mg/dL (7-26); BUN/CREATININE RATIO 16 (6-25); CALCIUM 9.6 mg/dL (8.4-10.2); CARBON DIOXIDE 24 mmol/L (22-29); CHLORIDE 101 mmol/L (98-107); CREATINE KINASE 97 IU/L (30-200); CREATININE, SERUM 0.81 mg/dL (0.72-1.25); EST GLOMERULAR FILTRATION RATE > 60 ML/MIN (60-); GLUCOSE 194 mg/dL (74-118); SODIUM 139 mmol/L (136-145)
[2019-04-28 02:23] LABS: BASOPHILS # (AUTO) 0.1 (0.0-0.1); BASOPHILS % 0.6 % (0.0-1.0); EOSINOPHILS # (AUTO) 0.3 (0.0-0.4); EOSINOPHILS % 3.4 % (0.0-6.0); HEMATOCRIT 44.1 % (38.2-49.6); HEMOGLOBIN 14.6 g/dL (14.0-18.0); LYMPHOCYTES # (AUTO) 1.9 (1.0-3.2); LYMPHOCYTES % 23.5 % (18.0-39.1); MEAN CORPUSCULAR HEMOGLOBIN 29.8 pg (28-32); MEAN CORPUSCULAR HGB CONC 33.1 g/dL (31-35); MONOCYTES # (AUTO) 0.9 (0.2-0.8); NEUTROPHILS # (AUTO) 4.8 (2.1-6.9); PLATELET COUNT 291 x10e3/uL (140-360); RED CELL DISTRIBUTION WIDTH 13.3 % (11.7-14.4)
--- NOTE | 2019-04-28 03:31 | Diagnostic Imaging Report ---
EXAMINATION: CHEST 2 VIEWS INDICATION: Chest pain COMPARISON: Chest CT 05/29/2018, chest x-ray 05/28/2018 FINDINGS: TUBES and LINES: None. LUNGS: Normal lung volumes. Prominent central pulmonary vasculature. Mild peripheral bronchial cuffing. Slight prominence of central pulmonary interstitial lung markings. PLEURA: No pleural effusion or pneumothorax. HEART AND MEDIASTINUM: Cardiac size is mildly enlarged. BONES AND SOFT TISSUES: No acute osseous lesion. Soft tissues are unremarkable. UPPER ABDOMEN: No free air under the diaphragm. IMPRESSION: Mild cardiomegaly and pulmonary vascular congestion. Mild pulmonary interstitial edema is suspected. Signed by: Colton Barrera DO on 04/28/2019 3:28 AM
[2019-04-28] MEDS ORDERED: NITROGLYCERIN 0.4 MG SUBL SL PRN (04:00)
[2019-04-28] MEDS ORDERED: SODIUM CHLORIDE FLUSH 10 ML SYR INJ PRN (04:00)
[2019-04-28] MEDS ORDERED: FAMOTIDINE 20 MG/2 ML VIAL IV SCH (04:00)
[2019-04-28] MEDS ORDERED: ONDANSETRON HCL INJ 2MG/ML 2ML 2 MG/ML VIAL IV PRN ×2 (04:00→08:15)
[2019-04-28] MEDS ORDERED: ONDANSETRON HCL INJ 2MG/ML 2ML 2 MG/ML VIAL IV STA (05:58)
[2019-04-28] MEDS: MORPHINE SULFATE 2 MG/ML SYR 1ML IV PRN ×2 (06:09→10:30)
--- NOTE | 2019-04-28 08:04 | NUR ---
H&P cc: chest pain HPI: 48yoM, PCP none, developed cp- precordial, persist.. some SOB. hx cigs. quit 1 yr ago. PMH: aphthous stomatitis, COPD, cig use, DM2, Peripheral edema, VERN, HTN, HLD PSHx: cholecystectomy, appendectomy Allergies; see emr FH/SH: meds; see MAR ROS: v/s revd PE tired appearing anicteric ns1s2 mod bs soft nt nd no e/t skin dry flat affect labs/meds revd A/P: Atypical CP COPD- O2; nebs DM2- hab1c/lipids Hx Cig HTN- home meds HLD- home meds Obesity- hab1c/lipids BMI 39.2 Prop: lovenox; pepcid dispo: needs cardio eval; needs echo and will need stress test at some point.
[2019-04-28 08:08] LABS: CREATINE KINASE MB 17.2 ng/mL (0-5.0)
[2019-04-28] MEDS ORDERED: SENNOSIDES 8.6 MG TAB PO PRN (08:15)
[2019-04-28] MEDS ORDERED: ZOLPIDEM TARTRATE 5 MG TAB PO PRN (08:15)
[2019-04-28 08:29] LABS: CHOL/HDL RATIO 5.6 (3.9-4.7)
[2019-04-28] MEDS ORDERED: AMLODIPINE BESYLATE 10 MG TAB PO SCH (09:00)
[2019-04-28] MEDS ORDERED: METOPROLOL TARTRATE 25 MG TAB PO SCH (09:00)
[2019-04-28] MEDS: ASPIRIN 81 MG ENTERIC COATED PO SCH (10:30)
--- NOTE | 2019-04-28 11:48 | NUR ---
Troponin noted to be 0.333. Attempted to call Dr. Magana. Spoke with drilling contractor service. Message was promised to be sent and I was told to expect a phone call back within an hour.
--- NOTE | 2019-04-28 11:53 | NUR ---
Received return call from Dr. Magana. Informed him of patient status and increased troponin. He stated that he would be in to see the patient shortly and that it was ok to transfer patient to Med Surg where he has been assigned a bed. Will pass this information in report to MED SURG 1
--- NOTE | 2019-04-28 12:30 | NUR ---
RECEIVED TO RM, AAOX3 NO DISTRESS NOTED, UPDATED ON POC VOICED UNDERSTANDING, L AC 2OG NO SS OF INFILTRATION NOTED, NO OTHER CO VOICED CALL LIGHT IN REACH WILL CONTINUE TO MONITOR
[2019-04-28 12:41] LABS: INR 0.89; PROTHROMBIN TIME 12.6 seconds (11.9-14.5)
[2019-04-28 12:42] LABS: PARTIAL THROMBOPLASTIN TIME 24.9 seconds (23.8-35.5)
[2019-04-28] MEDS ORDERED: HEPARIN 25,000 UNIT 1,000 UNIT in DEXTROSE 5% 250ML 250 ML IV SCH (13:15)
[2019-04-28] MEDS ORDERED: SODIUM CHLORIDE 0.9% 1000ML 1,000 ML IV SCH (13:24)
[2019-04-28 13:49] LABS: CREATINE KINASE MB 44.5 ng/mL (0-5.0)
[2019-04-28] MEDS ORDERED: HEPARIN SOD (PORCINE) 5,000 UNIT/ML VIAL IV ONE ×2 (14:00→15:00)
[2019-04-28] MEDS ORDERED: FENTANYL CITRATE/PF 100MCG/2 ML INJ ONE (14:27)
[2019-04-28] MEDS ORDERED: HEPARIN SOD (PORCINE) 1000 UNIT/ML 30ML ONE (14:27)
[2019-04-28] MEDS ORDERED: LIDOCAINE HCL 2% LOCAL 20 ML VIAL ONE (14:27)
[2019-04-28] MEDS ORDERED: MIDAZOLAM HCL 2 MG/2 ML VIAL ONE (14:27)
[2019-04-28] MEDS ORDERED: SODIUM CHLORIDE 0.9% 1000ML 1,000 ML ONE (14:28)
[2019-04-28] MEDS ORDERED: HEPARIN SOD/SOD CHLORIDE 2,000 ML ONE (14:28)
[2019-04-28] MEDS ORDERED: NITROGLYCERIN/D5W 200 MCG/ML 250 ML ONE (14:28)
[2019-04-28] MEDS ORDERED: VERAPAMIL HCL 2.5 MG/ML 2 ML VIAL ONE (14:28)
[2019-04-28] MEDS ORDERED: IOPAMIDOL 370 MG/ML 200 ML INFUS..BTL INJ ONE ×2 (14:28→16:07)
--- NOTE | 2019-04-28 14:43 | NUR ---
DOWN TO MALTED MILK SUPERVISOR, LEFT IN STABLE CONDITION
[2019-04-28] MEDS: FAMOTIDINE 20 MG TAB PO SCH (16:30)
[2019-04-28] MEDS ORDERED: ASPIRIN 81 MG CHEW TAB ONE (16:47)
[2019-04-28] MEDS ORDERED: CLOPIDOGREL BISULFATE 75 MG TAB ONE (16:47)
[2019-04-28] MEDS ORDERED: ENOXAPARIN SOD INJ 40 MG/0.4 ML SYR SC SCH (17:00)
--- NOTE | 2019-04-28 17:04 | Consultation ---
DATE OF CONSULTATION: Cardiology Consultation CONSULTING PHYSICIAN: Mor Dalton M.D., Interventional Cardiology REASON FOR CONSULTATION: Non-STEMI. HISTORY OF PRESENT ILLNESS: A 48-year-old man with history of hypertension; tobacco abuse, suspected COPD; morbid obesity; obstructive sleep apnea; and reported history of heart failure, presents with complaints of dyspnea on exertion and orthopnea ongoing for several months. He also reports episode of chest discomfort, described as pressure-like onset on Tuesday and intermittent. Initial EKG was remarkable for sinus rhythm, normal EKG. He ruled in for non-STEMI with second troponin of 0.33, CK of 224, and CK-MB of 17.2. His BNP is 48. Hemoglobin A1c was also unremarkable at 7.8. Creatinine 0.8, triglycerides 254, total cholesterol 201, LDL 114, and HDL 36. Adrián continues to complain of ongoing chest discomfort. Serial EKG shows progression inferiorly with Q-wave in spite of no significant ST change concerning for evolving inferior VA. REVIEW OF SYSTEMS: Twelve-system review is negative except for as noted above. ALLERGIES: NO KNOWN DRUG ALLERGIES. PAST MEDICAL HISTORY: Hypertension, morbid obesity, and obstructive sleep apnea. SOCIAL HISTORY: Tobacco abuse, he states he recently quit . FAMILY HISTORY: Noncontributory. PHYSICAL EXAMINATION: VITAL SIGNS: Temperature 97.9; blood pressure on admission was 189/119, currently 122/68; respiratory rate 14; heart rate 76, and O2 saturation 100% on nasal cannula. GENERAL: In no acute distress, alert. NECK: No JVD. CHEST: Clear to auscultation. CARDIOVASCULAR: Regular rate and rhythm. Normal S1, S2. No S3, no S4. No murmurs, no rubs. ABDOMEN: Soft, nontender, and nondistended. Bowel sounds positive. EXTREMITIES: No edema. CARDIOASCULAR MEDICATIONS: Reviewed: 1. Metoprolol tartrate 25 mg daily. 2. Amlodipine 10 mg daily. 3. Aspirin 81 mg daily. 4. Lovenox 40 mg subcu daily. STUDIES: Reviewed. INR 0.9 and PTT 24. Sodium 139, potassium 4, chloride 101, bicarbonate 24, BUN 18, creatinine 0.8, and glucose 194. Hemoglobin A1c is 7.3. AST 18, ALT 32, and alkaline phosphatase 54. CK 97, then 224; CK-MB is 1.9 and then 17.2. Troponin I less than 0.001, then 0.333. BNP 48.1. Total protein 6.8, albumin 3.9. Triglycerides 254, total cholesterol 201, LDL 114, HDL 36. ASSESSMENT: 1. Lqm-UQ-facoxbtnu myocardial infarction. 2. Hypertension. 3. Diabetes mellitus. 4. Morbid obesity. 5. Sleep apnea. 6. History of chronic diastolic heart failure with preserved left ventricular systolic function noted on echocardiogram. RECOMMENDATIONS: 1. Aspirin 81 mg daily. 2. Increase atorvastatin to 80 mg at bedtime. 3. Metoprolol increased to 25 mg every 12 hours. 4. Decrease amlodipine to 5 mg daily. 5. IV heparin. 6. Trend cardiac enzymes, coronary angiography, and possible intervention. Discussed indications, alternatives, risks, and benefits. MD COSTA Wu/MKL /[id number]
--- NOTE | 2019-04-28 19:13 | NUR ---
back to rm aaox3 no distress noted, dsg to r wrist c/d/i, radial pulse palpable, instructed pt re: no bending, pushing or pulling with r wrist, voiced understanding, call light in reach, family at bedside, will continue to monitor
--- NOTE | 2019-04-28 20:10 | Operative Report ---
DATE OF PROCEDURE: 04/28/2019 SURGEON: Mor Dalton MD PROCEDURE: Cardiac Catheterization. PROCEDURE INDICATION: [id number] myocardial infarction with refractory angina, emergent medical laboratory technician activation, acute KS, PCI. PROCEDURES PERFORMED: 1. Left heart catheterization. 2. Selective coronary angiography. 3. RPDA drug-eluting stent PCI. 4. Additional PCI of circumflex to obtuse marginal. 5. Right radial TR band hemostasis. PROCEDURE COMPLICATIONS: None. ESTIMATED BLOOD LOSS: Less than 15 mL. PROCEDURE SUMMARY: After consent was obtained, the patient was prepped and draped in sterile fashion. The right radial site was locally infiltrated with 2% lidocaine and access was obtained using an anterior stick. Of note, medical laboratory technician emergently activated for evolving KS. A 5-Swedish outer diameter slender sheath was advanced and a TIG catheter 5-Swedish was used for engagement of left main and the right coronary artery as well as across the aortic valve for hemodynamic measurements. Intervention of the right coronary artery was performed using a JR4 6-Swedish non-side hole guide catheter. A Runthrough wire positioned across the area of occlusion and into the distal RPDA and overlapping stents 2.0 x 15 Resolute Edmundo and 2.0 x 12 Resolute [place] drug- eluting stents were deployed. Preprocedure stenosis was 100% with collateral filling distally UMU 0 across the area of stenosis, however, distally reconstituting. Post stenosis; UMU-3 flow, no residual perforations or dissections, and less than 10% stenosis post intervention across the RPDA. Attention then directed to the circumflex. A Runthrough wire and XB 3.5 no-side hole guide catheter were used. The area of obtuse marginal was crossed and predilatation was performed with 2.0 x 12 balloon with improvement in stenosis to less than 50%. This was followed by a 2.5 x 18 Resolute [place] drug-eluting stent, deployed to 14 atmospheres. Final angiography reveals UMU- 3 flow, 0% residual stenosis, no flow-limiting dissections, no perforations. FINDINGS: 1. LV pressure was 124/13 with end-diastolic pressure ranging from 20 to 41. The patient with snoring and significant blood pressures and intrathoracic pressures. 2. Aortic pressure was 124/77 at the time of pullback without significant gradient the across aortic valve. It does drop to 104/77 afterwards, likely related to the intrathoracic pressure variations related to the patient's breathing. 3. No left ventriculogram was performed. 4. The left main is large in caliber with luminal irregularities, gives an LAD and circumflex. 5. The LAD has luminal irregularities in the proximal segment, gives a diagonal and multiple septal perforators. Distal LAD has 40% focal stenosis. 6. The circumflex arises from the left main. It has an area of about 80% eccentric stenosis this was a target lesion treated. 7. The right coronary artery is dominant, large in caliber. It gives a couple of RV marginals in the mid segment and terminal RPDA with 100% stenosis in the mid segment, which was a target lesion, and the RPLV, which gives 2 terminal branches. CONCLUSION: RPDA drug-eluting stent PCI and circumflex to OM drug-eluting stent PCI. RECOMMEND: Aspirin and Plavix. Wean TR band. Mor Dalton MD AFFidel/OTTO /[id number] FLYNN
[2019-04-28] MEDS ORDERED: ATORVASTATIN 20 MG TAB PO SCH (21:00)
[2019-04-28] MEDS ORDERED: ATORVASTATIN 40 MG TAB PO SCH (21:00)
--- NOTE | 2019-04-28 21:22 | NUR ---
PT REFUSING BED ALARM. PT STATES "IT WILL KEEP ME UP ALL NIGHT, I AM REFUSING THE BED ALARM." PT VERY FRUSTRATED AT THIS TIME. NOTIFIED MD CHARGE OF PT REFUSAL.
[2019-04-28] MEDS: METOPROLOL SUCCINATE 25 MG TAB XL PO SCH (22:29)
[2019-04-29 01:47] VITALS: BP 123/75
[2019-04-29] MEDS: MORPHINE SULFATE 2 MG/ML SYR 1ML IV PRN ×2 (02:41→11:02)
[2019-04-29 04:00] VITALS: BP 105/58
[2019-04-29] MEDS ORDERED: TIOTROPIUM 18 MCG INH POWDER INH SCH (06:00)
[2019-04-29 06:44] LABS: CHOL/HDL RATIO 7.1 (3.9-4.7); CHOLESTEROL 199 MD/DL (0-199); HDL CHOLESTEROL 28 MG/DL (40-60); TRIGLYCERIDES 530 MG/DL (0-149)
--- NOTE | 2019-04-29 07:00 | NUR ---
BEDSIDE SHIFT REPORT RECEIVED PT IN STABLE CONDITION, DENIES PAIN AT THIS TIME, UPDATED ON POC VOICED UNDERSTANDING, CALL LIGHT IN REACH WILL CONTINUE TO MONITOR
--- NOTE | 2019-04-29 07:00 | NUR ---
REPORT RECEIVED FROM DAY RN. PT RECEIVED FROM FINANCING ANALYST AT 190. RESPIRATIONS EVEN AND UNLABORED. PRESSURE DRESSING TO RT WRIST.02 ON 2L PER N/C. NS INFUSING AT 100 PER HR- LEFT AC.HOB ELEVATED. CALL LIGHT WITHIN REACH. BED IN LOW POSITION.DENIES PAIN. Addendum: 04/29/19 at 1018 by KAILA MEREDITH RN INCORRECT DATE AND TIME. CORRECT DATE AND TIME 04/28/19 190.
[2019-04-29 07:56] VITALS: BP 107/59
[2019-04-29 08:15] VITALS: BP 107/59
[2019-04-29] MEDS: ASPIRIN 81 MG ENTERIC COATED PO SCH (08:28)
[2019-04-29] MEDS: FAMOTIDINE 20 MG TAB PO SCH (08:28)
[2019-04-29] MEDS: METOPROLOL SUCCINATE 25 MG TAB XL PO SCH (08:30)
[2019-04-29] MEDS ORDERED: AMLODIPINE BESYLATE 10 MG TAB PO SCH (09:00)
[2019-04-29] MEDS ORDERED: CLOPIDOGREL BISULFATE 75 MG TAB PO SCH (09:00)
--- NOTE | 2019-04-29 09:09 | NUR ---
ADDENDUM to H&P: ROS: no f/c/s/N/V/D/GAMINO/skin rash/back pain/vision changes/focal limb weakness/ Eneida Sherwood MD, PhD.
--- NOTE | 2019-04-29 09:10 | NUR ---
D/C summary Princiapl Dx: CAD s/p 3 stents Atypical CP SEcondary Dx; COPD- O2; nebs DM2- hab1c/lipids Hx Cig HTN- home meds HLD- home meds Obesity- hab1c/lipids BMI 39.2 Prop: lovenox; pepcid dispo: needs cardio eval; needs echo and will need stress test at some point. 04/29 Tn now 3.7; NSTEMI; Hba1c/LDL 7.3/114. LVEF on Echo d/c home f/u 2-[address] Melendez in 2 week D/C>35mins Yony Craig MD, PhD.
--- NOTE | 2019-04-29 12:03 | NUR ---
NOTED NSTEMI W EMERGENT HEART CATH. CALL TO DR. CAMPUZANO FOR INPT ORDER.
[2019-04-29 12:09] VITALS: BP 114/64
[2019-04-29] MEDS ORDERED: Atorvastatin PO (14:03)
[2019-04-29] MEDS ORDERED: PLAVIX75 MG PO (14:03)
[2019-04-29] MEDS ORDERED: ASPIRIN EC81 MG PO (14:03)
[2019-04-29] MEDS ORDERED: LOSARTAN POTASS25 MG PO (14:03)
[2019-04-29] MEDS ORDERED: FAMOTIDINE20 MG PO (14:03)
--- NOTE | 2019-04-29 22:23 | Progress Note ---
DATE: 04/29/2019 Cardiology Progress Note SUBJECTIVE: No complaints today. Denies any chest pain or shortness of breath. OBJECTIVE: VITAL SIGNS: Temperature 96.6, heart rate 76, blood pressure 107/59, respiratory rate 18, O2 saturation 96%. BMI 37.5. GENERAL: In no acute distress, alert. NECK: No JVD. No carotid bruit. CHEST: Clear to auscultation. CARDIOVASCULAR: Regular rate and rhythm. Normal S1, S2. No S3, no S4. No murmurs. ABDOMEN: Soft. Bowel sounds positive. EXTREMITIES: Trace edema. CARDIOVASCULAR MEDICATIONS: Reviewed. P.r.n. nitroglycerin, atorvastatin 80 mg at bedtime, metoprolol succinate 25 mg every 12 hours, clopidogrel 75 mg daily, aspirin 81 mg daily, amlodipine 5 mg daily. STUDIES: Reviewed. Creatinine is 0.8. His glucose is 194, hemoglobin is 14.6, and platelets are 291. ASSESSMENT AND PLAN: 1. Mjf-[id number] myocardial infarction, status post RCA drug-eluting stent PCI and circumflex to obtuse marginal, drug-eluting stent PCI. 2. Suspected sleep apnea. 3. Morbid obesity. 4. Diabetes mellitus. 5. Hypertension. 6. Dyslipidemia. RECOMMEND: 1. Continue dual antiplatelet therapy with aspirin and Plavix. 2. High potency statin. 3. Beta sandra. 4. Consider ARB/VELVET inhibitor as blood pressure allows. 5. Can continue calcium channel sandra for blood pressure optimization also. 6. Weight loss encouraged. 7. Outpatient followup in 2 to 4 weeks post discharge. MD COSTA Wu/MKL /[id number]
== END 2019-04-29 16:16 | disposition home or self-care (01) | DRG 247 ==
LOC: ER 01:32 → ERHOLD 03:58 → MED/SURG 12:20 → OBSVTOIN 04-29 13:21
PROVIDERS: ADMIT Internal Medicine; ATTEND Internal Medicine
PROC: 027136Z Dilation of Coronary Artery, Two Arteries with Three Drug-eluting Intraluminal Devices, Percutaneous Approach (ICD-10-PCS; principal; 2019-04-28)
PROC: 4A023N7 Measurement of Cardiac Sampling and Pressure, Left Heart, Percutaneous Approach (ICD-10-PCS; 2019-04-28)
PROC: B2111ZZ Fluoroscopy of Multiple Coronary Arteries using Low Osmolar Contrast (ICD-10-PCS; 2019-04-28)
DX: I21.4 Non-ST elevation (NSTEMI) myocardial infarction (principal); I50.32 Chronic diastolic (congestive) heart failure; I25.10 Atherosclerotic heart disease of native coronary artery without angina pectoris; E11.9 Type 2 diabetes mellitus without complications; I11.0 Hypertensive heart disease with heart failure; J44.9 Chronic obstructive pulmonary disease, unspecified; E78.5 Hyperlipidemia, unspecified; G47.33 Obstructive sleep apnea (adult) (pediatric); E66.01 Morbid (severe) obesity due to excess calories; Z68.37 Body mass index [BMI] 37.0-37.9, adult; Z87.891 Personal history of nicotine dependence
CPT/HCPCS: 36415; 71046; 80053; 80061; 82550; 82553; 83036; 83880; 84484; 85025; 85379; 85610; 85730; 92928; 92929; 93005; 93306; 93458; 94664; 99152; 99153; 99285; C1725; C1876; C1887; G0378; J1644; J2001; J2250; J2270; J2405; J3010; J7030; Q9967

== ENCOUNTER 2019-05-01 17:00 | Emergency (ER) | payer BC ==
[~2019-05-01] VITALS: Ht 172.7 cm; Wt 112.0 kg
[~2019-05-01 17:00] MED LIST changes: +ASPIRIN EC81 MG PO; +Atorvastatin PO; +FAMOTIDINE20 MG PO; +LOSARTAN POTASS25 MG PO; +PLAVIX75 MG PO
[2019-05-01] MEDS ORDERED: MORPHINE SULFATE INJ 4 MG/ML INJ 1ML IV PRN ×2 (17:15→18:30)
[2019-05-01 17:30] LABS: BASOPHILS % 0.5 % (0.0-1.0); EOSINOPHILS # (AUTO) 0.2 (0.0-0.4); EOSINOPHILS % 3.1 % (0.0-6.0); HEMATOCRIT 45.8 % (38.2-49.6); HEMOGLOBIN 15.6 g/dL (14.0-18.0); LYMPHOCYTES # (AUTO) 1.5 (1.0-3.2); LYMPHOCYTES % 20.6 % (18.0-39.1); MEAN CORPUSCULAR HEMOGLOBIN 30.1 pg (28-32); MEAN CORPUSCULAR HGB CONC 34.1 g/dL (31-35); MEAN CORPUSCULAR VOLUME 88.4 fL (81-99); MONOCYTES # (AUTO) 0.8 (0.2-0.8); MONOCYTES % 11.1 % (4.4-11.3); NEUTROPHILS # (AUTO) 4.8 (2.1-6.9); NEUTROPHILS % 64.3 % (38.7-80.0); PLATELET COUNT 306 x10e3/uL (140-360); RED BLOOD COUNT 5.18 x10e6/uL (4.3-5.7); RED CELL DISTRIBUTION WIDTH 13.1 % (11.7-14.4)
[2019-05-01 17:51] LABS: ALANINE AMINOTRANSFERASE 28 IU/L (0-55); ALBUMIN/GLOBULIN RATIO 1.3 (0.8-2.0); ALKALINE PHOSPHATASE 67 IU/L (40-150); ANION GAP 15.8 mmol/L (8-16); BLOOD UREA NITROGEN 14 mg/dL (7-26); BUN/CREATININE RATIO 16 (6-25); CALCIUM 10.3 mg/dL (8.4-10.2); CARBON DIOXIDE 28 mmol/L (22-29); CHLORIDE 100 mmol/L (98-107); CREATINE KINASE 109 IU/L (30-200); CREATININE, SERUM 0.85 mg/dL (0.72-1.25); EST GLOMERULAR FILTRATION RATE > 60 ML/MIN (60-); GLUCOSE 265 mg/dL (74-118); POTASSIUM 3.8 mmol/L (3.5-5.1); SODIUM 140 mmol/L (136-145)
[2019-05-01] MEDS ORDERED: ENOXAPARIN SODIUM INJ 100 MG/ML SYR SC SCH (18:15)
[2019-05-01] MEDS ORDERED: ASPIRIN 325 MG TAB PO ONE (18:15)
--- NOTE | 2019-05-01 18:23 | NUR ---
client advised by dr. calle that we were full and did not have ICU beds available, client was given the option of being transferred to [facility] for ICU care. client declient transfer and states that he cannot afford going that far. client adivsed that he really needs ICU care and client further declined the transfer to [facility] for ICU care.
[2019-05-01] MEDS ORDERED: ASPIRIN 81 MG CHEW TAB PO ONE (18:30)
[2019-05-01] MEDS ORDERED: ONDANSETRON HCL INJ 2MG/ML 2ML 2 MG/ML VIAL IV PRN (18:30)
--- NOTE | 2019-05-01 18:37 | Diagnostic Imaging Report ---
EXAM: CHEST SINGLE (PORTABLE) DATE: 05/01/2019 5:12 PM INDICATION: Chest pain ^ERMD ORDER ^[id number] ^1750 ^Y COMPARISON: Chest x-ray, 04/28/2019 FINDINGS: Lines and tubes: None Heart size normal. No focal pulmonary opacity, pleural effusion or pneumothorax. Mildly prominent lower lobe lung markings may be accentuated by low lung volumes. Upper abdomen unremarkable. No acute bony abnormality. IMPRESSION: Heart size normal for projection. Improvement of vascular prominence since last exam. Mild atelectasis at the lung bases, likely accentuated by low lung volumes. Signed by: Dr. Vignesh Cantu M.D. on 05/01/2019 6:34 PM
--- NOTE | 2019-05-01 18:39 | NUR ---
initiated transfer to [facility]
[2019-05-01] MEDS ORDERED: HYDRALAZINE HCL 20 MG/ML VIAL IV PRN (18:45)
--- NOTE | 2019-05-01 18:48 | NUR ---
advised by transfer center that no ICU, IMU beds available at [facility]. Will attempt placement at [facility]
[2019-05-01] MEDS ORDERED: KETOROLAC TROMETHAMINE 30 MG/ML VIAL IV STA (21:33)
== END 2019-05-01 22:15 | disposition home or self-care (01) ==
LOC: ER 17:00
DX: R07.89 Other chest pain (principal); R06.00 Dyspnea, unspecified; R11.0 Nausea; Z95.5 Presence of coronary angioplasty implant and graft
CPT/HCPCS: 36415; 71045; 80053; 82550; 82553; 83880; 84484; 85025; 85379; 93005; 99283; J1885

== ENCOUNTER 2019-05-28 12:31 | Emergency (ER) | payer BC ==
[~2019-05-28] VITALS: Ht 172.7 cm; Wt 112.0 kg
[2019-05-28 13:04] LABS: BASOPHILS % 0.6 % (0.0-1.0); EOSINOPHILS # (AUTO) 0.3 (0.0-0.4); EOSINOPHILS % 4.8 % (0.0-6.0); HEMATOCRIT 42.6 % (38.2-49.6); HEMOGLOBIN 14.2 g/dL (14.0-18.0); LYMPHOCYTES # (AUTO) 1.2 (1.0-3.2); LYMPHOCYTES % 18.2 % (18.0-39.1); MEAN CORPUSCULAR HEMOGLOBIN 29.9 pg (28-32); MEAN CORPUSCULAR HGB CONC 33.3 g/dL (31-35); MEAN CORPUSCULAR VOLUME 89.7 fL (81-99); MONOCYTES # (AUTO) 0.7 (0.2-0.8); MONOCYTES % 10.4 % (4.4-11.3); NEUTROPHILS # (AUTO) 4.4 (2.1-6.9); NEUTROPHILS % 65.8 % (38.7-80.0); PLATELET COUNT 259 x10e3/uL (140-360); RED BLOOD COUNT 4.75 x10e6/uL (4.3-5.7); RED CELL DISTRIBUTION WIDTH 12.8 % (11.7-14.4)
[2019-05-28 14:12] LABS: ALANINE AMINOTRANSFERASE 42 IU/L (0-55); ALBUMIN 3.9 g/dL (3.5-5.0); ALBUMIN/GLOBULIN RATIO 1.4 (0.8-2.0); ALKALINE PHOSPHATASE 75 IU/L (40-150); ANION GAP 9.9 mmol/L (8-16); BLOOD UREA NITROGEN 11 mg/dL (7-26); BUN/CREATININE RATIO 14 (6-25); CALCIUM 8.9 mg/dL (8.4-10.2); CARBON DIOXIDE 26 mmol/L (22-29); CHLORIDE 103 mmol/L (98-107); CREATINE KINASE 88 IU/L (30-200); CREATININE, SERUM 0.81 mg/dL (0.72-1.25); EST GLOMERULAR FILTRATION RATE > 60 ML/MIN (60-); GLUCOSE 304 mg/dL (74-118); POTASSIUM 3.9 mmol/L (3.5-5.1); SODIUM 135 mmol/L (136-145)
--- NOTE | 2019-05-28 15:05 | Diagnostic Imaging Report ---
EXAMINATION: CHEST 2 VIEWS INDICATION: Chest pain COMPARISON: Chest radiograph 05/01/2019 FINDINGS: LINES/TUBES:None LUNGS:The lungs are well-inflated. There is perihilar fullness and indistinctness of the pulmonary vasculature. PLEURA:No pleural effusion or pneumothorax. MEDIASTINUM:The cardiomediastinal silhouette appears unchanged in size and shape. BONES/SOFT TISSUES:No acute osseous injury. ABDOMEN:No free air under the diaphragm. IMPRESSION: Minimal interstitial pulmonary edema. Signed by: Anisa Alfonso MD on 05/28/2019 3:02 PM
--- NOTE | 2019-05-28 15:51 | NUR ---
awaiting call back from Dr. Magana.
[2019-05-28] MEDS ORDERED: MAALOX/LIDOCAINE/BENADRYL/NYST 30 ML BTL PO ONE (16:30)
[2019-05-28] MEDS ORDERED: DEXAMETHASONE 4 MG TAB PO NR (16:35)
[2019-05-28] MEDS ORDERED: ASPIRIN 81 MG CHEW TAB PO ONE (16:45)
[2019-05-28 17:07] LABS: CREATINE KINASE MB 3.3 ng/mL (0-5.0)
[2019-05-28 18:17] VITALS: BP 141/70
== END 2019-05-28 18:43 | disposition home or self-care (01) ==
LOC: ER 12:31
DX: R07.89 Other chest pain (principal); R06.00 Dyspnea, unspecified
CPT/HCPCS: 36415; 71046; 80053; 82550; 82553; 84484; 85025; 93005; 99284; J8540